=== PATIENT | female | born 1955 | race Caucasian/White ===

== ENCOUNTER 2024-01-11 08:37 | Inpatient (IN) | payer MEDICARE, OTHER ==
[~2024-01-11] VITALS: Ht 157.5 cm; Wt 105.6 kg
[2024-01-11] MEDS: ACETAMINOPHEN IV 1000 MG/100ML (10MG/ML) IV STA (10:40)
[2024-01-11] MEDS ORDERED: MORPHINE SULFATE INJ 2 MG/ml SYRG IV PRN ×2 (13:00)
[2024-01-11] MEDS ORDERED: ONDANSETRON HCL 4 MG/2 ML VIAL IV PRN (13:00)
[2024-01-11] MEDS ORDERED: NITROGLYCERIN 0.4 MG SL TAB SL PRN (13:00)
[2024-01-11] MEDS: SODIUM CHLORIDE 0.9% 1,000 ML IV SCH (13:00)
[2024-01-11 13:17] LABS: Basophils # (auto) 0 10 ^3/uL (0-0.2); Basophils % (auto) 0.2 % (0.0-2.0); Eosinophils # (auto) 0 10 ^3/uL (0-0.8); Eosinophils % (auto) 0.1 % (0.0-7.0); Hemoglobin 11.5 g/dL (12.2-16.2); Lymphocytes # (auto) 0.6 10 ^3/uL (0.4-5.4); Lymphocytes % (auto) 5.4 % (10.0-50.0); Mean Corpuscular Hemoglobin 24.3 pg (28.0-32.0); Mean Corpuscular Hgb Conc. 31.9 g/dL (32.0-36.0); Mean Corpuscular Volume 76.4 fL (80.0-100.0); Monocytes # (auto) 0.5 10 ^3/uL (0-1.3); Monocytes % (auto) 3.8 % (0.0-12.0); Neutrophils # (auto) 10.6 10 ^3/uL (1.6-8.6); Neutrophils % (auto) 90.5 % (37.0-80.0); Nucleated Red Blood Cells % 0.1 %; Platelet Count (auto) 334 10^3/uL (140-450); Red Blood Cells 4.71 10^6/uL (4.0-5.20); Red Cell Distribution Width 17.2 % (11.8-14.3); White Blood Cell 11.8 10^3/uL (4.4-10.8)
[2024-01-11 13:34] LABS: INR 1.06 (0.9-1.15); Partial Thromboplastin Time 25.4 SEC (24.5-34.5); Prothrombin Time 11.2 sec (9.3-11.8)
[2024-01-11 13:36] LABS: Alanine Aminotransferase 20 U/L (7-40); Albumin 4.2 g/dL (3.2-4.8); Alkaline Phosphatase 76 U/L (46-116); Anion Gap 8 (5-15); Aspartate Aminotransferase 23 U/L (13-40); BUN/Creatinine Ratio 15.2 (10.0-20.0); Bilirubin, Total 0.6 mg/dL (0.2-1.0); Blood Urea Nitrogen 14 mg/dL (9-23); Calcium 9.8 mg/dL (8.7-10.4); Carbon Dioxide 24 mmol/L (20-30); Chloride 106 mmol/L (98-107); Glucose 111 mg/dL (74-106); Potassium 4.2 mmol/L (3.5-5.1); Sodium 138 mmol/L (136-145); Total Protein 5.9 g/dL (5.7-8.2)
[2024-01-11] MEDS: ENOXAPARIN SOD 40 MG/0.4 ML SYRINGE SC SCH (13:54)
[2024-01-11 18:16] VITALS: BP 140/63; PULSE 63; RESP 17; TEMP 97.8; O2SAT 97
[2024-01-11 20:00] VITALS: PULSE 78; RESP 18; O2SAT 96
[2024-01-11] MEDS ORDERED: hydrALAZINE HCL 20 MG/ML VL IV PRN (20:00)
[2024-01-11] MEDS: ACETAMINOPHEN 325 MG TAB PO PRN (20:18)
[2024-01-12 07:15] LABS: Basophils # (auto) 0 10 ^3/uL (0-0.2); Eosinophils # (auto) 0.2 10 ^3/uL (0-0.8); Hematocrit 36.2 % (36.0-46.0); Hemoglobin 11.6 g/dL (12.2-16.2); Lymphocytes # (auto) 1.3 10 ^3/uL (0.4-5.4); Monocytes # (auto) 0.7 10 ^3/uL (0-1.3)
[2024-01-12 07:17] LABS: Basophils % (auto) 0.5 % (0.0-2.0); Lymphocytes % (auto) 17.7 % (10.0-50.0); Mean Corpuscular Hemoglobin 24.7 pg (28.0-32.0); Mean Corpuscular Volume 76.9 fL (80.0-100.0); Monocytes % (auto) 10.2 % (0.0-12.0); Neutrophils # (auto) 4.9 10 ^3/uL (1.6-8.6); Neutrophils % (auto) 68.6 % (37.0-80.0); Nucleated Red Blood Cells % 0.1 %; Platelet Count (auto) 309 10^3/uL (140-450); Red Cell Distribution Width 17.7 % (11.8-14.3); White Blood Cell 7.1 10^3/uL (4.4-10.8)
[2024-01-12 07:42] LABS: Alanine Aminotransferase 15 U/L (7-40); Alkaline Phosphatase 65 U/L (46-116); Anion Gap 12 (5-15); BUN/Creatinine Ratio 13.6 (10.0-20.0); Blood Urea Nitrogen 12 mg/dL (9-23); Calcium 9.7 mg/dL (8.7-10.4); Carbon Dioxide 19 mmol/L (20-30); Chloride 108 mmol/L (98-107); Glucose 95 mg/dL (74-106); Potassium 3.5 mmol/L (3.5-5.1); Sodium 139 mmol/L (136-145)
[2024-01-12 07:43] LABS: Albumin 4.1 g/dL (3.2-4.8); Aspartate Aminotransferase 19 U/L (13-40); Bilirubin, Total 0.8 mg/dL (0.2-1.0); Total Protein 6.1 g/dL (5.7-8.2)
[2024-01-12 08:00] VITALS: RESP 18; O2SAT 96
[2024-01-12 08:30] VITALS: BP 140/61; PULSE 95; RESP 16; TEMP 97.9; O2SAT 95
[2024-01-12] MEDS ORDERED: RABE20TA19 PO (10:29)
[2024-01-12] MEDS ORDERED: IBUP-1456 PO (10:29)
[2024-01-12] MEDS ORDERED: CITA-77 PO (10:29)
[2024-01-12] MEDS ORDERED: NAPR-746 PO (10:29)
[2024-01-12] MEDS ORDERED: PRAV20TA3 PO (10:29)
[2024-01-12] MEDS ORDERED: ATEN-60 PO (10:29)
[2024-01-12 12:47] VITALS: BP 124/50; PULSE 64; RESP 18; TEMP 98.7; O2SAT 95
[2024-01-12 17:14] VITALS: BP 124/51; PULSE 69; RESP 15; TEMP 98.4; O2SAT 99
[2024-01-12] MEDS: PANTOPRAZOLE 40 MG TAB PO ONE (18:02)
[2024-01-12 20:00] VITALS: RESP 18; O2SAT 96
[2024-01-12 21:00] VITALS: BP 120/60; PULSE 74; RESP 20; TEMP 97.9; O2SAT 94
[2024-01-12] MEDS: PRAVASTATIN SODIUM 20 MG TAB PO SCH (21:46)
[2024-01-13] VITALS (9 sets, daily range): BP systolic 108–134; BP diastolic 67–82; PULSE 73–104; RESP 14–20; TEMP 97.5–98.8; O2SAT 92–97
[2024-01-13 03:47] LABS: Urine Bacteria None Seen /hpf (None Seen)
[2024-01-13 04:03] LABS: Urine Blood Negative /uL (Negative); Urine Clarity Clear (Clear); Urine Color Yellow (Yellow); Urine Mucus FEW (None Seen); Urine Protein, UAD Negative (Negative); Urine Urobilinogen Normal (Negative); Urine WBC 8 /hpf (0 - 5)
[2024-01-13] MEDS ORDERED: DexAMETHasone SOD PHOS 4 MG/1ML SDV INJ ONE (07:02)
[2024-01-13] MEDS ORDERED: BUPIVACAINE 0.25% INJ 50ML VIAL ONE ×2 (07:02→08:49)
[2024-01-13] MEDS ORDERED: EPINEPHrine HCL 1 MG/1 ML AMP ONE (07:02)
[2024-01-13] MEDS ORDERED: LIDOCAINE 1% INJ PF 5ML AMP ONE (07:18)
[2024-01-13] MEDS ORDERED: DexAMETHasone SOD PHOS 10MG/1ML VIAL INJ ONE (07:18)
[2024-01-13] MEDS ORDERED: KETOROLAC TROMETH 30 MG/ML 1ML VIAL ONE (07:18)
[2024-01-13] MEDS ORDERED: LIDOCAINE 2% (LOCAL ANESTH.) PF 5ml SDV ONE (07:18)
[2024-01-13] MEDS ORDERED: ONDANSETRON HCL 4 MG/2 ML VIAL ONE (07:18)
[2024-01-13] MEDS ORDERED: PROPOFOL 10 MG/ML 20 ML IV ONE ×3 (07:18→09:25)
[2024-01-13] MEDS ORDERED: GLYCOPYRROLATE 0.2 MG/ML 1ML VIAL ONE (07:18)
[2024-01-13] MEDS ORDERED: KETAMINE 50mg/ML 1ml syringe ONE (07:22)
[2024-01-13] MEDS ORDERED: fentaNYL CITRATE 100 MCG/2 ML VL ONE (07:22)
[2024-01-13 07:28] LABS: Basophils # (auto) 0.1 10 ^3/uL (0-0.2); Eosinophils # (auto) 0.3 10 ^3/uL (0-0.8); Hematocrit 35.2 % (36.0-46.0); Hemoglobin 11.1 g/dL (12.2-16.2); Lymphocytes # (auto) 1.3 10 ^3/uL (0.4-5.4); Mean Corpuscular Hemoglobin 24.3 pg (28.0-32.0); Monocytes # (auto) 0.7 10 ^3/uL (0-1.3); Neutrophils # (auto) 5.6 10 ^3/uL (1.6-8.6); Nucleated Red Blood Cells % 0.1 %; Red Blood Cells 4.59 10^6/uL (4.0-5.20)
[2024-01-13 07:30] LABS: Basophils % (auto) 0.7 % (0.0-2.0); Mean Corpuscular Hgb Conc. 31.6 g/dL (32.0-36.0); Mean Corpuscular Volume 76.7 fL (80.0-100.0); Neutrophils % (auto) 70.3 % (37.0-80.0); Platelet Count (auto) 333 10^3/uL (140-450); Red Cell Distribution Width 17.6 % (11.8-14.3)
[2024-01-13 07:34] LABS: Anion Gap 6 (5-15); Calcium 9.8 mg/dL (8.7-10.4); Carbon Dioxide 22 mmol/L (20-30); Chloride 108 mmol/L (98-107); Potassium 3.9 mmol/L (3.5-5.1); Sodium 136 mmol/L (136-145)
[2024-01-13 07:41] LABS: BUN/Creatinine Ratio 11.9 (10.0-20.0); Blood Urea Nitrogen 10 mg/dL (9-23); Glucose 102 mg/dL (74-106)
[2024-01-13] MEDS ORDERED: GABAPENTIN 400 MG CAP ONE (08:14)
[2024-01-13] MEDS ORDERED: ACETAMINOPHEN IV 100 ML IV ONE (08:14)
[2024-01-13] MEDS ORDERED: CELECOXIB 100 MG CAP ONE (08:14)
[2024-01-13] MEDS: CELECOXIB 100 MG CAP PO ONE (08:26)
[2024-01-13] MEDS: ACETAMINOPHEN IV 1000 MG/100ML (10MG/ML) IV ONE (08:26)
[2024-01-13] MEDS: GABAPENTIN 400 MG CAP PO ONE (08:26)
[2024-01-13] MEDS ORDERED: MIDAZOLAM HCL 2MG/2ML 2ml VIAL (1mg/ml) ONE (08:38)
[2024-01-13] MEDS ORDERED: ceFAZolin 2 GM/D5W50ml 50 ML IV ONE (08:45)
[2024-01-13] MEDS ORDERED: ROCURONIUM 10MG/ML 10ML VIAL IV ONE (09:13)
[2024-01-13] MEDS ORDERED: TRANEXAMIC ACID 20 ML ONE (09:25)
[2024-01-13] MEDS ORDERED: ESMOLOL HCL 10 ML IV ONE (09:31)
[2024-01-13] MEDS ORDERED: SUGAMMADEX 200mg/2ml Vial (100MG/ML) IV ONE (09:38)
[2024-01-13] MEDS ORDERED: PHENYLEPHRINE HCL 10 MG/ML VL ONE (09:54)
[2024-01-13] MEDS ORDERED: SODIUM CHLORIDE LOCK 10 ML ONE (09:54)
[2024-01-13] MEDS ORDERED: fentaNYL CITRATE 100 MCG/2 ML VL IV PRN (12:15)
[2024-01-13] MEDS ORDERED: ONDANSETRON HCL 4 MG/2 ML VIAL IV PRN (12:15)
[2024-01-13] MEDS ORDERED: oxyCODONE HCL 5MG TAB PO ONE (12:15)
[2024-01-13] MEDS ORDERED: ePHEDrine SULFATE 50 MG/ML AMP IV PRN (12:15)
[2024-01-13] MEDS ORDERED: FLUMAZENIL 0.1 MG/ML INJ 10ML MDV IV PRN (12:15)
[2024-01-13] MEDS ORDERED: NALOXONE HCL 0.4 MG/ML VIAL IV PRN (12:15)
[2024-01-13] MEDS ORDERED: hydrALAZINE HCL 20 MG/ML VL IV PRN (12:15)
[2024-01-13] MEDS: HYDROmorphone HCL 2 MG/ML VL/or syr IV PRN (12:40)
[2024-01-13] MEDS ORDERED: ceFAZolin 1GM/50ML 50 ML IV SCH (14:00)
[2024-01-13] MEDS: D5W/SOD CHL 0.45%/KCL 20MEQ 1,000 ML IV SCH (19:10)
[2024-01-13] MEDS: ASPirin 81 mg TAB PO ONE (19:13)
[2024-01-13] MEDS: ceFAZolin 1GM/50ML 50 ML IV SCH (19:59)
[2024-01-13] MEDS: ENOXAPARIN SOD 40 MG/0.4 ML SYRINGE SC ONE (21:46)
[2024-01-14] VITALS (8 sets, daily range): BP systolic 108–129; BP diastolic 58–76; PULSE 59–83; RESP 16–20; TEMP 97.3–99.5; O2SAT 92–94
[2024-01-14] MEDS: HYDROcodone-ACET 5/325MG TAB PO PRN (01:03)
[2024-01-14 07:36] LABS: Basophils # (auto) 0 10 ^3/uL (0-0.2); Basophils % (auto) 0.2 % (0.0-2.0); Eosinophils # (auto) 0 10 ^3/uL (0-0.8); Hemoglobin 9.1 g/dL (12.2-16.2); Lymphocytes # (auto) 0.8 10 ^3/uL (0.4-5.4); Monocytes # (auto) 1.2 10 ^3/uL (0-1.3); Monocytes % (auto) 7.7 % (0.0-12.0); Nucleated Red Blood Cells % 0.1 %
[2024-01-14 07:39] LABS: Hematocrit 29.3 % (36.0-46.0); Lymphocytes % (auto) 5.2 % (10.0-50.0); Mean Corpuscular Hemoglobin 23.6 pg (28.0-32.0); Mean Corpuscular Volume 76.1 fL (80.0-100.0); Neutrophils # (auto) 13.6 10 ^3/uL (1.6-8.6); Neutrophils % (auto) 86.9 % (37.0-80.0); Platelet Count (auto) 332 10^3/uL (140-450); Red Blood Cells 3.86 10^6/uL (4.0-5.20); Red Cell Distribution Width 17.5 % (11.8-14.3); White Blood Cell 15.7 10^3/uL (4.4-10.8)
[2024-01-14 07:41] LABS: Anion Gap 7 (5-15); Carbon Dioxide 24 mmol/L (20-30); Chloride 106 mmol/L (98-107); Potassium 4.6 mmol/L (3.5-5.1); Sodium 137 mmol/L (136-145)
[2024-01-14 07:42] LABS: Calcium 9.7 mg/dL (8.7-10.4)
[2024-01-14 07:47] LABS: BUN/Creatinine Ratio 16.3 (10.0-20.0); Blood Urea Nitrogen 17 mg/dL (9-23); Glucose 140 mg/dL (74-106)
[2024-01-14] MEDS: ATENOLOL 25 MG TAB PO ONE (09:49)
[2024-01-15 01:00] VITALS: BP 127/70; PULSE 75; RESP 17; TEMP 98.5; O2SAT 98
[2024-01-15 05:00] VITALS: BP 127/71; PULSE 69; RESP 16; TEMP 98.8; O2SAT 93
[2024-01-15] MEDS: HYDROcodone-ACET 7.5/325MG TAB PO PRN (05:41)
[2024-01-15 07:36] LABS: Basophils # (auto) 0.1 10 ^3/uL (0-0.2); Basophils % (auto) 0.5 % (0.0-2.0); Eosinophils # (auto) 0.3 10 ^3/uL (0-0.8); Eosinophils % (auto) 2.7 % (0.0-7.0); Hematocrit 27.3 % (36.0-46.0); Hemoglobin 8.9 g/dL (12.2-16.2); Lymphocytes # (auto) 1.4 10 ^3/uL (0.4-5.4); Lymphocytes % (auto) 13.2 % (10.0-50.0); Mean Corpuscular Hemoglobin 24.7 pg (28.0-32.0); Mean Corpuscular Hgb Conc. 32.5 g/dL (32.0-36.0); Mean Corpuscular Volume 76.1 fL (80.0-100.0); Monocytes % (auto) 9.1 % (0.0-12.0); Neutrophils % (auto) 74.5 % (37.0-80.0); Platelet Count (auto) 329 10^3/uL (140-450); Red Blood Cells 3.59 10^6/uL (4.0-5.20); Red Cell Distribution Width 17.9 % (11.8-14.3); White Blood Cell 10.8 10^3/uL (4.4-10.8)
[2024-01-15 08:06] LABS: Chloride 106 mmol/L (98-107); Potassium 4.4 mmol/L (3.5-5.1); Sodium 137 mmol/L (136-145)
[2024-01-15 08:07] LABS: Anion Gap 7 (5-15); Calcium 9.6 mg/dL (8.7-10.4); Carbon Dioxide 24 mmol/L (20-30)
[2024-01-15 08:12] LABS: BUN/Creatinine Ratio 20.2 (10.0-20.0); Blood Urea Nitrogen 17 mg/dL (9-23); Glucose 102 mg/dL (74-106)
[2024-01-15 08:43] VITALS: BP 121/74; PULSE 70; RESP 20; TEMP 99.6; O2SAT 94
[2024-01-15] MEDS ORDERED: HYDR-4902 PO (10:07)
[2024-01-15] MEDS ORDERED: CEPH500C PO (10:07)
[2024-01-15 12:55] VITALS: BP 125/68; PULSE 68; RESP 20; TEMP 99.3; O2SAT 94
[2024-01-15 17:10] VITALS: BP 120/73; PULSE 74; RESP 20; TEMP 99.2; O2SAT 97
[2024-01-15] MEDS: DOCUSATE SOD 100 MG CAP PO PRN (17:56)
== END 2024-01-15 20:50 | disposition home health service (06) | DRG 493 ==
LOC: ER 08:37 → OVERFLOW 12:59 → CENTRAL 18:10
PROVIDERS: ADMIT Internal Medicine Geriatric Medicine; ATTEND Internal Medicine Geriatric Medicine
PROC: 0PSF04Z Reposition Right Humeral Shaft with Internal Fixation Device, Open Approach (ICD-10-PCS; principal; 2024-01-13 08:57)
DX: S42.491A Other displaced fracture of lower end of right humerus, initial encounter for closed fracture (principal); S52.501A Unspecified fracture of the lower end of right radius, initial encounter for closed fracture; Z68.41 Body mass index [BMI] 40.0-44.9, adult; I10 Essential (primary) hypertension; W01.0XXA Fall on same level from slipping, tripping and stumbling without subsequent striking against object, initial encounter; I25.10 Atherosclerotic heart disease of native coronary artery without angina pectoris; E78.00 Pure hypercholesterolemia, unspecified; E66.9 Obesity, unspecified; D50.9 Iron deficiency anemia, unspecified; Z90.710 Acquired absence of both cervix and uterus; Z82.49 Family history of ischemic heart disease and other diseases of the circulatory system; Z85.42 Personal history of malignant neoplasm of other parts of uterus; Y93.89 Activity, other specified; Y92.89 Other specified places as the place of occurrence of the external cause; Y99.8 Other external cause status; Z95.5 Presence of coronary angioplasty implant and graft; Z85.3 Personal history of malignant neoplasm of breast
CPT/HCPCS: 36415; 71045; 73060; 73070; 73080; 73090; 73110; 73200; 76000; 80048; 80053; 81001; 85025; 85610; 85730; 86850; 86900; 86901; 93005; 93306; 93971; 96372; 96374; 97110; 97116; 97530; G0378; J0131; J0171; J1100; J1885; J2001; J2250; J2405; J2704; J3490